=== PATIENT | female | born 1930 | race Caucasian/White ===

== ENCOUNTER 2017-08-02 15:32 | Outpatient (CLI) | payer MEDICARE, OTHER ==
[2016-04-17 07:57] VITALS: BP 150/58
--- NOTE | 2017-08-02 17:11 | Diagnostic Imaging Report ---
[facility] [address] [facility].[address] [id number] Report Submission Date: Aug 02, 2017 4:01:57 PM PEDIATRIC DENTIST Patient Study Name: BOOM GOFF Date: Aug 02, 2017 3:47:11 PM PEDIATRIC DENTIST Modality Type: CR Gender: F Description: CHEST : [birth year] Institution: [facility] Physician: KRISTOFER CORNEJO Examination: PA and lateral chest. History: Evaluate lung diallo. Comparison examination: None available for direct review Findings: PA lateral chest demonstrate a normal cardiac and mediastinal silhouette. Vascular calcifications involving the aortic arch. Chronic interstitial changes. No focal infiltrate. No blunting of the costophrenic margins. Osseous structures are appropriate for age. Right axillary surgical clips. Impression: Chronic changes. No acute appearing pulmonary process. Electronically signed on Aug 02, 2017 4:01:57 PM PEDIATRIC DENTIST by: Jason POOLE
== END 2017-08-02 15:33 ==
LOC: RAD 15:32
PROVIDERS: ATTEND Physician Assistant
DX: R05 Cough (principal)
CPT/HCPCS: 71020

== ENCOUNTER 2017-10-22 11:29 | Outpatient (CLI) | payer MEDICARE, OTHER ==
[2016-04-17 07:57] VITALS: BP 150/58
--- NOTE | 2017-10-22 18:49 | Diagnostic Imaging Report ---
KATELIN FERRARI [facility] [id number] [facility] [address] [address] Report Submission Date: Oct 22, 2017 12:15:21 PM CDT Patient Study Name: BOOM GOFF Date: Oct 22, 2017 11:38:54 AM CDT Modality Type: DX Gender: F Description: SPINE : [birth year] Institution: [facility] Physician: KATELIN FERRARI Examination: Plain film lumbar spine History: L-SPINE, LOW BACK PAIN FOR SEVERAL MONTHS, LEFT WORSE THAN RIGHT. 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 No anterior compression. Osteophyte formation and disc space narrowing. Slight curvature to the left. Atherosclerotic disease involving the abdominal aorta. Pelvic surgical clips. Impression: Osteopenia and degenerative changes. No compression deformity. Electronically signed on Oct 22, 2017 12:15:21 PM CDT by: Jason POOLE
--- NOTE | 2017-10-22 18:49 | Diagnostic Imaging Report ---
KATELIN FERRARI [facility] [address] [facility] [address] [address] Report Submission Date: Oct 22, 2017 12:18:00 PM CDT Patient Study Name: BOOM GOFF Date: Oct 22, 2017 11:40:18 AM CDT Modality Type: DX Gender: F Description: PELVIS : [birth year] Institution: [facility] Physician: KATELIN FERRARI Examination: Plain film left hip History: LEFT HIP, PAIN IN LEFT HIP FOR SEVERAL MONTHS. 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 No evidence for fracture/dislocation. Region of bony sclerosis involving the superior acetabular margin. Groin vascular calcifications. Impression: Osteopenia and degenerative changes. No evidence for acute fracture. Region of bony sclerosis involving the superior acetabular margin - patient reports a history of bone carcinoma. Correlate with history and previous imaging if becomes available. Consider bone scan to further evaluate if clinically warranted. Electronically signed on Oct 22, 2017 12:18:00 PM CDT by: Jason POOLE
== END 2017-10-22 11:30 ==
LOC: RAD 11:29
PROVIDERS: ATTEND Family Medicine
DX: M25.552 Pain in left hip (principal); M54.42 Lumbago with sciatica, left side
CPT/HCPCS: 72100

== ENCOUNTER 2017-12-09 10:01 | Outpatient (CLI) | payer MEDICARE, OTHER ==
[2016-04-17 07:57] VITALS: BP 150/58
== END 2017-12-09 10:03 ==
LOC: LABRHC 10:01
PROVIDERS: ATTEND Family Medicine
DX: L85.8 Other specified epidermal thickening (principal)